=== PATIENT | male | born 1960 | race Caucasian/White ===

== ENCOUNTER 2023-05-01 16:29 | Inpatient (IN) | payer OTHER ==
[~2023-05-01] VITALS: Ht 180.3 cm; Wt 83.5 kg
[2023-05-01] MEDS ORDERED: IPRATROPIUM BROMIDE 0.5 MG/2.5 ML NEBU ONE (16:58)
[2023-05-01] MEDS ORDERED: ALBUTEROL SULFATE 2.5 MG/3 ML NEBU ONE (16:58)
[2023-05-01 16:59] VITALS: O2SAT 90
[2023-05-01] MEDS: IPRATROPIUM BROMIDE 0.5 MG/2.5 ML NEBU NEB ONE (16:59)
[2023-05-01] MEDS: ALBUTEROL SULFATE 2.5 MG/3 ML NEBU NEB ONE (16:59)
[2023-05-01 17:14] VITALS: O2SAT 99
[2023-05-01 17:16] LABS: BASOPHILS # (AUTO) 0.4 K/UL (0.0-0.2); BASOPHILS % (AUTO) 2.9 % (0.0-2.0); EOSINOPHILS # (AUTO) 1.1 K/uL (0.0-0.7); EOSINOPHILS % (AUTO) 7.2 % (0.0-7.0); HEMATOCRIT 43.1 % (36.7-47.1); HEMOGLOBIN 14.7 g/dL (12.5-16.3); LYMPHOCYTES % (AUTO) 19.3 % (20.5-51.5); MEAN CORPUSCULAR HGB CONC 34 g/dL (32.5-36.3); MEAN CORPUSCULAR VOLUME 90.7 fL (73.0-96.2); MONOCYTES % (AUTO) 6.4 % (0.0-11.0); NEUTROPHILS # (AUTO) 9.8 K/uL (1.8-8.9); NEUTROPHILS % (AUTO) 64.2 % (38.5-71.5); PLATELET COUNT (AUTO) 288 K/uL (152-348); RED BLOOD CELL COUNT(AUTO) 4.75 MIL/uL (4.06-5.63); RED CELL DISTRIBUTION WIDTH 12.7 % (12.1-16.2); WHITE BLOOD COUNT (AUTO) 15.3 K/uL (3.6-10.2)
[2023-05-01] MEDS ORDERED: methylPREDNISolone SOD SUCC 125 MG/2 ML VIAL ONE (17:17)
[2023-05-01] MEDS: methylPREDNISolone SOD SUCC 125 MG/2 ML VIAL IV ONE (17:21)
[2023-05-01] MEDS ORDERED: CHOL-9 PO (17:34)
[2023-05-01] MEDS ORDERED: ATOR10TA PO (17:34)
[2023-05-01] MEDS ORDERED: FURO-152 PO (17:34)
[2023-05-01] MEDS ORDERED: CARV12.52 PO (17:34)
[2023-05-01] MEDS ORDERED: ASPI81TA31 PO (17:34)
[2023-05-01] MEDS ORDERED: BISA10SU61 RC (17:34)
[2023-05-01] MEDS ORDERED: MULT-213 PO (17:34)
[2023-05-01] MEDS ORDERED: NA P133E RC (17:34)
[2023-05-01] MEDS ORDERED: MAGN400O6 PO (17:34)
[2023-05-01] MEDS ORDERED: QUET50TA PO (17:34)
[2023-05-01] MEDS ORDERED: LISI20TA30 PO (17:34)
[2023-05-01] MEDS ORDERED: UMEC62.5 IH (17:34)
[2023-05-01] MEDS ORDERED: SPIR25TA6 PO (17:34)
[2023-05-01] MEDS ORDERED: ACET-2605 PO (17:34)
[2023-05-01] MEDS ORDERED: AMLO-212 PO (17:34)
[2023-05-01] MEDS ORDERED: ACET325C7 PO (17:34)
[2023-05-01 17:41] LABS: DIFFERENTIAL COMMENT 1
[2023-05-01 17:59] LABS: ALANINE AMINOTRANSFERASE 31 U/L (16-63); ALBUMIN 4.3 g/dL (3.4-5.0); ALKALINE PHOSPHATASE 98 U/L (50-136); ASPARTATE AMINOTRANSFERASE 23 U/L (15-37); BILIRUBIN,DIRECT 0.1 mg/dL (0.0-0.2); BILIRUBIN,TOTAL 0.4 mg/dL (0.2-1.0); CALCIUM 9.4 mg/dL (8.5-10.1); CARBON DIOXIDE 27 mmol/L (21-32); CHLORIDE 102 mmol/L (98-107); CREATININE 1.3 mg/dL (0.6-1.3); GLUCOSE 90 mg/dL (74-106); NT-PRO BNP 56 pg/mL (0-125); SODIUM SERUM 137 mmol/L (136-145); TOTAL PROTEIN, SERUM 7.9 g/dL (6.4-8.2); UREA NITROGEN, BLOOD 46 mg/dL (7-18)
[2023-05-01] MEDS ORDERED: AZITHROMYCIN 250 MG TABLET ONE (18:34)
[2023-05-01] MEDS ORDERED: CEFTRIAXONE /D5W 50ML IVPB **ER PYXIS IV ONE (18:34)
[2023-05-01] MEDS: AZITHROMYCIN 250 MG TABLET PO ONE (18:37)
[2023-05-01] MEDS: CEFTRIAXONE 1 G in IV DEXTROSE 5% 50 ML IV ONE (18:37)
[2023-05-01 19:35] LABS: CALCIUM 9.1 mg/dL (8.5-10.1); CREATININE 1.3 mg/dL (0.6-1.3)
[2023-05-01 20:04] LABS: POTASSIUM 6.3 mmol/L (3.5-5.1)
[2023-05-01 22:00] VITALS: BP 116/68; TEMP 97.5; O2SAT 96; O2SAT 97
[2023-05-01] MEDS ORDERED: DEXTROSE 50% 50 ML DISP.SYRIN ONE (22:48)
[2023-05-01] MEDS ORDERED: CALCIUM GLUCONATE 1 GM/10 ML VIAL IV ONE (22:48)
[2023-05-01] MEDS ORDERED: INSULIN REGULAR, HUMAN 300 UNIT/3 ML VIAL ONE (22:49)
[2023-05-01] MEDS ORDERED: SODIUM POLYSTYRENE SULFONATE 15 G/60 ML LIQUID UDC ONE (22:49)
[2023-05-01] MEDS ORDERED: SODIUM BICARBONATE 8.4% 50 MEQ/50 ML DISP.SYRIN IV ONE (22:49)
[2023-05-01] MEDS: DEXTROSE 50% 50 ML DISP.SYRIN IV ONE (23:16)
[2023-05-01] MEDS: INSULIN REGULAR, HUMAN 300 UNIT/3 ML VIAL IV ONE (23:18)
[2023-05-01] MEDS: SODIUM POLYSTYRENE SULFONATE 15 G/60 ML LIQUID UDC PO ONE (23:20)
[2023-05-01] MEDS: SODIUM BICARBONATE 8.4% 50 MEQ/50 ML DISP.SYRIN IV ONE (23:20)
[2023-05-01] MEDS: CALCIUM GLUCONATE IV 1 GM in IV DEXTROSE 5% 50 ML IV ONE (23:21)
[2023-05-01 23:34] VITALS: O2SAT 97
[2023-05-01] MEDS ORDERED: ONDANSETRON 4 MG/2 ML VIAL IV PRN (23:45)
[2023-05-01] MEDS ORDERED: ALBUTEROL SULFATE 2.5 MG/3 ML NEBU NEB PRN (23:45)
[2023-05-01] MEDS ORDERED: ACETAMINOPHEN 325 MG TABLET PO PRN (23:45)
[2023-05-01 23:55] VITALS: BP 109/65; TEMP 97.7; O2SAT 95
[2023-05-02 03:00] VITALS: O2SAT 97
[2023-05-02 05:57] VITALS: BP 111/46; TEMP 97.4; O2SAT 97
[2023-05-02] MEDS: PANTOPRAZOLE SODIUM 40 MG TABLET.DR PO SCH (06:16)
[2023-05-02 07:34] LABS: THYROID STIMULATING HORMONE 0.168 mIU/mL (0.358-3.740)
[2023-05-02 07:36] LABS: BASOPHILS % (AUTO) 0.1 % (0.0-2.0); EOSINOPHILS % (AUTO) 0.1 % (0.0-7.0); HEMATOCRIT 44.5 % (36.7-47.1); HEMOGLOBIN 15.4 g/dL (12.5-16.3); LYMPHOCYTES # (AUTO) 1.2 K/uL (0.8-4.8); LYMPHOCYTES % (AUTO) 6.2 % (20.5-51.5); MEAN CORPUSCULAR HEMOGLOBIN 31.4 uug (23.8-33.4); MEAN CORPUSCULAR HGB CONC 35 g/dL (32.5-36.3); MEAN CORPUSCULAR VOLUME 91.1 fL (73.0-96.2); MONOCYTES # (AUTO) 0.5 K/uL (0.1-1.30); MONOCYTES % (AUTO) 2.4 % (0.0-11.0); NEUTROPHILS # (AUTO) 17.6 K/uL (1.8-8.9); NEUTROPHILS % (AUTO) 91.2 % (38.5-71.5); PLATELET COUNT (AUTO) 303 K/uL (152-348); RED BLOOD CELL COUNT(AUTO) 4.89 MIL/uL (4.06-5.63); RED CELL DISTRIBUTION WIDTH 12.7 % (12.1-16.2); WHITE BLOOD COUNT (AUTO) 19.3 K/uL (3.6-10.2)
[2023-05-02 07:38] LABS: DIFFERENTIAL COMMENT 1
[2023-05-02 07:55] LABS: BILIRUBIN,TOTAL 0.4 mg/dL (0.2-1.0); TOTAL PROTEIN, SERUM 7.9 g/dL (6.4-8.2)
[2023-05-02 07:56] LABS: MAGNESIUM 2.3 mg/dL (1.8-2.4); PHOSPHOROUS 4.4 mg/dL (2.5-4.9)
[2023-05-02 07:57] LABS: CALCIUM 9.1 mg/dL (8.5-10.1); CREATININE 1.1 mg/dL (0.6-1.3)
[2023-05-02 08:00] VITALS: BP 121/55; TEMP 97.7; O2SAT 97
[2023-05-02] MEDS ORDERED: MAGNESIUM HYDROXIDE 30 ML LIQUID UDC PO PRN (08:15)
[2023-05-02] MEDS ORDERED: BISACODYL 10 MG SUPP.RECT RC PRN (08:15)
[2023-05-02] MEDS: ASPIRIN 81 MG TAB.CHEW PO SCH (09:12)
[2023-05-02] MEDS: MULTIVIT, IRON, MIN NO. 8, FA TABLET PO SCH (09:12)
[2023-05-02] MEDS: FLUTICASONE/VILANTEROL 1 EACH BLST.W.DEV INH SCH (10:18)
[2023-05-02] MEDS: levoFLOXacin 500 MG/D5W 500 MG in PREMIXED 1 EACH IV SCH (12:41)
[2023-05-02] MEDS: QUETIAPINE FUMARATE 25 MG TABLET PO SCH (12:42)
[2023-05-02] MEDS: methylPREDNISolone SOD SUCC 40 MG/ML VIAL IV SCH (14:41)
[2023-05-02 16:30] VITALS: BP 115/61; TEMP 97.8; O2SAT 97
[2023-05-02 17:54] VITALS: O2SAT 99
[2023-05-02 18:24] LABS: BASOPHILS # (AUTO) 0.1 K/UL (0.0-0.2); BASOPHILS % (AUTO) 0.3 % (0.0-2.0); EOSINOPHILS % (AUTO) 0.1 % (0.0-7.0); HEMATOCRIT 41.1 % (36.7-47.1); LYMPHOCYTES # (AUTO) 1.1 K/uL (0.8-4.8); LYMPHOCYTES % (AUTO) 4.4 % (20.5-51.5); MEAN CORPUSCULAR HEMOGLOBIN 30.9 uug (23.8-33.4); MEAN CORPUSCULAR HGB CONC 34 g/dL (32.5-36.3); MEAN CORPUSCULAR VOLUME 90.9 fL (73.0-96.2); MONOCYTES # (AUTO) 0.4 K/uL (0.1-1.30); MONOCYTES % (AUTO) 1.6 % (0.0-11.0); NEUTROPHILS # (AUTO) 24.4 K/uL (1.8-8.9); NEUTROPHILS % (AUTO) 93.6 % (38.5-71.5); PLATELET COUNT (AUTO) 294 K/uL (152-348); RED BLOOD CELL COUNT(AUTO) 4.52 MIL/uL (4.06-5.63); RED CELL DISTRIBUTION WIDTH 12.6 % (12.1-16.2)
[2023-05-02 18:44] LABS: DIFFERENTIAL COMMENT 1
[2023-05-02 18:57] LABS: ALBUMIN 3.8 g/dL (3.4-5.0); BILIRUBIN,TOTAL 0.3 mg/dL (0.2-1.0); CREATININE 1.2 mg/dL (0.6-1.3); PHOSPHOROUS 2.6 mg/dL (2.5-4.9); POTASSIUM 5.6 mmol/L (3.5-5.1); TOTAL PROTEIN, SERUM 7.5 g/dL (6.4-8.2)
[2023-05-02 20:00] VITALS: BP 118/61; TEMP 97.9; O2SAT 97
[2023-05-02] MEDS: ATORVASTATIN 10 MG TABLET PO SCH (20:54)
[2023-05-03] VITALS (7 sets, daily range): BP systolic 102–126; BP diastolic 46–53; TEMP 97.4–98.6; O2SAT 92–98
[2023-05-03 13:13] LABS: *CHLORIDE RNDM,URINE 75 mmol/L (100-250); *POTASSIUM RNDM,URINE 35 mmol/L (25-125); *SODIUM RNDM,URINE 61 mmol/L (40-220)
[2023-05-03 14:43] LABS: ALBUMIN 3.7 g/dL (3.4-5.0); BILIRUBIN,TOTAL 0.2 mg/dL (0.2-1.0); CREATININE 1.1 mg/dL (0.6-1.3); PHOSPHOROUS 2.5 mg/dL (2.5-4.9); POTASSIUM 5.3 mmol/L (3.5-5.1); TOTAL PROTEIN, SERUM 7.2 g/dL (6.4-8.2)
[2023-05-03 14:56] LABS: BASOPHILS % (AUTO) 0.1 % (0.0-2.0); HEMATOCRIT 40.6 % (36.7-47.1); HEMOGLOBIN 13.9 g/dL (12.5-16.3); LYMPHOCYTES # (AUTO) 0.9 K/uL (0.8-4.8); LYMPHOCYTES % (AUTO) 3.4 % (20.5-51.5); MEAN CORPUSCULAR HEMOGLOBIN 31.2 uug (23.8-33.4); MEAN CORPUSCULAR HGB CONC 34 g/dL (32.5-36.3); MEAN CORPUSCULAR VOLUME 91.5 fL (73.0-96.2); MONOCYTES # (AUTO) 1.4 K/uL (0.1-1.30); NEUTROPHILS # (AUTO) 25.5 K/uL (1.8-8.9); NEUTROPHILS % (AUTO) 91.5 % (38.5-71.5); PLATELET COUNT (AUTO) 288 K/uL (152-348); RED BLOOD CELL COUNT(AUTO) 4.43 MIL/uL (4.06-5.63); RED CELL DISTRIBUTION WIDTH 12.7 % (12.1-16.2); WHITE BLOOD COUNT (AUTO) 27.9 K/uL (3.6-10.2)
[2023-05-03 14:57] LABS: DIFFERENTIAL COMMENT 1
[2023-05-04] VITALS: BP 126/52; TEMP 98.8; O2SAT 96
[2023-05-04 04:00] VITALS: BP 136/62; TEMP 98; O2SAT 96
[2023-05-04 07:38] VITALS: BP 124/60; TEMP 97.5; O2SAT 98
[2023-05-04 11:30] VITALS: BP 126/56; TEMP 97.8; O2SAT 97
[2023-05-04] MEDS ORDERED: LEVO500T90 PO (11:41)
[2023-05-04] MEDS ORDERED: ACET325T53 PO (11:41)
[2023-05-04] MEDS ORDERED: PANT40TA49 PO (11:41)
[2023-05-04] MEDS ORDERED: CARV6.25 PO (11:41)
[2023-05-04] MEDS ORDERED: ALBU2.5V7 NEB (11:41)
[2023-05-04] MEDS ORDERED: ATOR20TA PO (11:41)
[2023-05-04] MEDS ORDERED: METH4TAB3 PO (11:41)
[2023-05-04] MEDS ORDERED: IPRA0.2S6 NEB (11:46)
== END 2023-05-04 14:30 | DRG 140 ==
LOC: ER 16:31 → TELE3 21:45
PROVIDERS: ADMIT Internal Medicine; ATTEND Internal Medicine
PROC: 5A09457 Assistance with Respiratory Ventilation, 24-96 Consecutive Hours, Continuous Positive Airway Pressure (ICD-10-PCS; principal; 2023-05-01)
PROC: 05HB33Z Insertion of Infusion Device into Right Basilic Vein, Percutaneous Approach (ICD-10-PCS; 2023-05-03)
DX: J44.1 Chronic obstructive pulmonary disease with (acute) exacerbation (principal); J96.01 Acute respiratory failure with hypoxia; N17.0 Acute kidney failure with tubular necrosis; Z99.81 Dependence on supplemental oxygen; E87.5 Hyperkalemia; F17.210 Nicotine dependence, cigarettes, uncomplicated; J44.0 Chronic obstructive pulmonary disease with (acute) lower respiratory infection; J20.8 Acute bronchitis due to other specified organisms; E87.1 Hypo-osmolality and hyponatremia; E78.5 Hyperlipidemia, unspecified; I11.0 Hypertensive heart disease with heart failure; I50.32 Chronic diastolic (congestive) heart failure; G89.29 Other chronic pain; M19.90 Unspecified osteoarthritis, unspecified site; F31.9 Bipolar disorder, unspecified; F19.11 Other psychoactive substance abuse, in remission; F10.11 Alcohol abuse, in remission; E11.65 Type 2 diabetes mellitus with hyperglycemia; Z79.82 Long term (current) use of aspirin; Z79.899 Other long term (current) drug therapy; Z79.51 Long term (current) use of inhaled steroids
CPT/HCPCS: 36415; 71045; 82652; 83605; 83735; 84100; 84133; 84300; 84443; 84484; 85025; 87040; 93005; 93307; 93880; 94660; 94760; G0378; J0610; J0696; J1815; J1956; J2920; J2930; J3490; J3590; Q0144